=== PATIENT | male | born 1945 | race Caucasian/White ===

== ENCOUNTER 2022-03-19 06:18 | Day surgery (SDC) | payer OTHER, BC ==
--- NOTE | 2022-03-14 10:09 | RAD REPORT ---
EXAM DESCRIPTION: Carolyn Beasley And Zev (2 Views)03/14/2022 10:02 am CLINICAL HISTORY: Preop prostate surgery/hypertension COMPARISON: 2016 FINDINGS: The lungs appear clear of acute infiltrate. The heart is probably upper limits normal siz e IMPRESSION: No acute abnormalities displayed
[2022-03-14 10:11] LABS: Absolute Lymphocytes (CBC) 1.4 K/uL (0.7-4.9); Hematocrit 51.9 % (39.6-49.0); Lymphocytes % 25.3 % (15.3-44.8); MCV 82.6 fL (80-100); MPV 7.8 fL (7.6-11.3); RBC Red Blood Cell Count 6.28 M/uL (4.33-5.43)
[2022-03-14 10:19] LABS: Protime INR 1.33
[2022-03-14 10:25] LABS: SARS-CoV-2 Antigen Rapid Res Negative (Negative)
[2022-03-14 10:27] LABS: Specific Gravity > 1.030 (1.005-1.030); Urine Bilirubin NEGATIVE (Negative); Urine Blood Negative (Negative); Urine Clarity Clear (Clear); Urine Color Light-Yellow (Yellow); Urine Glucose 4+ (Over) (Negative); Urine Protein NEGATIVE (Negative); Urine Urobilinogen Normal (Normal)
[2022-03-14 10:39] LABS: Potassium 4.5 mmol/L (3.5-5.1)
--- NOTE | 2022-03-14 14:54 | EKG ---
Test Date: 2022-03-14 Test Time: 09:38:05 [employer] Dispenser: LALITA MEASUREMENT RESULTS: Intervals: Rate: 59 MO: 164 QRSD: 126 QT: 444 QTc: 439 [place]: P: 76 MO: 164 QRS: 100 T: -56 INTERPRETIVE STATEMENTS: Sinus bradycardia with occasional premature ventricular complexes Right bundle branch block T wave abnormality, consider inferolateral ischemia Abnormal ECG Compared to ECG 12/01/2015 13:55:33 Ventricular premature complex(es) now present Right bundle-branch block now present T-wave abnormality now present ST (T wave) deviation no longer present Prolonged QT interval no longer present Possible ischemia still present Electronically Signed On 03-14-22 14:53:29 CDT by Valentin Chau
[2022-03-19] MEDS ORDERED: CEFAZOLIN SODIUM 2 GM/VIAL ONE (06:43)
[2022-03-19] MEDS ORDERED: NA CHLORIDE 0.9% 1,000 ML ONE (06:43)
[2022-03-19] MEDS ORDERED: LIDOCAINE 1% MPF 5 ML VIAL ONE (07:33)
[2022-03-19] MEDS ORDERED: propofoL 200 MG/20 ML VIAL IV ONE (07:33)
[2022-03-19] MEDS ORDERED: FENTANYL CITR 100 MCG/2 ML ONE (07:33)
[2022-03-19] MEDS ORDERED: EPHEDRINE SULF 50 MG/ML VIAL ONE (07:44)
[2022-03-19] MEDS ORDERED: dexAMETHasone 10 MG/ML VIAL ONE (08:06)
[2022-03-19] MEDS ORDERED: ONDANSETRON 4 MG/2 ML VIAL ONE (08:06)
[2022-03-19 08:36] VITALS: O2SAT 94
[2022-03-19 08:54] VITALS: TEMP 97
[2022-03-19 09:14] VITALS: BP 125/76
--- NOTE | 2022-03-19 13:46 | OP ---
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 Principal Procedures: 1.Transrectal ultrasound guided fiducial markers placement, two. 2.Transrectal ultrasound-guided insertion of SpaceOAR gel. Indication For Procedure: Mr. Krishna is a 76-year-old gentleman with history of PE, on Eliquis, along with other medical comorbidities who underwent biopsy for an elevated PSA and a right apical prostate nodule revealing a 68.59 g gland and [place] 3 + 4 adenocarcinoma of the prostate involving the left apex laterally as well as the left mid gland and right mid gland. He was counseled on options inclu ding active surveillance, but also treatment options to include radiation therapy. Initially, he jay cted a version of active surveillance, but then he changed his mind and elected to proceed with proce dural therapy via radiation. He presents today for placement of fiducial markers to guide radiation as well as SpaceOAR gel. Procedure In Detail: The patient was consented in the preoperative holding area before being transfe rred to the operative suite where general anesthesia was induced. He was given Ancef 2 g IV antimicr obial prophylaxis and Pneumoboots were provided for DVT prophylaxis. He had stopped his Eliquis with the last dose taken Friday. His genitalia and scrotum were elevated out of the perineal region us ing Ioban drape applied to elevate the genitalia out of the perineal region. Once this was done, the perineal area was prepped with Betadine and the transrectal ultrasound probe was inserted freehand i nto his rectum under ultrasound guidance with ease. The prostate was visualized and placed into a se lf holding stepper device and was visualizable from the apex through to the bladder and seminal vesic les. The midzone of the prostate and the urethra was easily visualized. As a result, I began the pr ocedure using a fiducial marker inserted into his left apical region mid gland laterally. An additio nal fiducial marker was then placed into his right lateral mid gland base region. I then utilized th e SpaceOAR needle with a solution of saline in a syringe attached to it to navigate the needle carefu lly under ultrasound guidance over the rectal hump into a very narrow space of [place] between the base of the prostate and the rectum. Initially, the capsule of the prostate was entered using th e needle, but I was able to correct and get outside of the capsule of the prostate. I was able to hough ccessfully navigate the needle into the mid region of the prostate between the apex and the base with in the middle of the gland as visualized in 2 dimensions ultrasonographically. I then aspirated the needle to assess for any blood, and no blood was obtained. I then injected a puff of saline into the region and it did appropriately hydrodissect the space. As a result, I then utilized the SpaceOAR g el and injected the gel and created a nice space between the rectum and the base of the prostate. Th e needle was then removed under direct vision ensuring to avoid the anterior rectal hump, and the devan e was concluded. The Betadine was washed from his perineum and the Ioban drape was removed. He was taken out of the lithotomy position, and he was awakened from general anesthesia. He was then transf erred to a stretcher before being transferred to the recovery room in good condition. Complications: None. Discharge Disposition: He should initiate followup with Dr. Brown to begin radiation therapy in t he weeks. Subsequent followup may be established with me about 3 months after he completes th e radiation treatment or if he has bothersome urinary issues in the meantime. NORA/PUMA Voice ID: [id number] Report ID: [id number]
== END 2022-03-19 09:52 | disposition home or self-care (01) ==
LOC: OR 06:18
PROVIDERS: ATTEND Urology
PROC: 0VH43YZ Insertion of Other Device into Prostate and Seminal Vesicles, Percutaneous Approach (ICD-10-PCS; principal; 2022-03-19 07:30)
DX: C61 Malignant neoplasm of prostate (principal); I10 Essential (primary) hypertension; E03.9 Hypothyroidism, unspecified; E11.9 Type 2 diabetes mellitus without complications; Z86.711 Personal history of pulmonary embolism; Z79.01 Long term (current) use of anticoagulants; F17.210 Nicotine dependence, cigarettes, uncomplicated; Z20.822 Contact with and (suspected) exposure to COVID-19
CPT/HCPCS: 93005; 85025; 80048; 36415; 85610; 82947 ×2; 81003; 71046; 87811; 55874; J2704; J2001; J3010; J1100; J7030; J2405

== ENCOUNTER 2022-05-05 08:02 | Emergency (ER) | payer OTHER, BC ==
--- OUTSIDE RECORDS SUMMARY | 2022-05-05 08:07 | XMS REPORT | Continuity of Care Document ---
:1945 Author Organization [facility] t Address [address] [place] [address] Care Team Providers Name Role Phone [phone] Primary Care Physician Unavailable Jeb Bullock Attending Clinician Unavailable Irma Giordano Attending Clinician Unavailable SYSTEM, PROVIDER NOT IN Attending Clinician Unavailable Luke Fairbanks MD Attending Clinician CECI TEMPLE Attending Clinician Unavailable MUMTAZ ESPARZA Attending Clinician Unavailable LOLA REDD Attending Clinician Unavailable BRIAN CASTELLANOS Attending Clinician Unavailable CECI TEMPLE Admitting Clinician Unavailable Payers Payer Name Policy Type Policy Number Effective Date Expiration Date S ource Problems Condition Condition Condition Status Onset Resolution Last Treating Co mments Source Name Details Category Date Date Treatment Clinician Date Malignant Malignant Disease Active 2018-06 Met hodi 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 Malignant hepatic masses are less commonly calcified . The calcified hepatic mass seen on imaging is less likely malignanc y however we will request the CT scan from his outside hospital and review it during radiology conferenc e to determine plan of care. AFP normal. No exposure to HCV. Fatty Fatty Disease Active [facility] liver liver 12-31 Assessmen [facility] 00:00: t & Plan: Medical [address] [place] [address] g of this note might be different from the original. The patient is known to have fatty liver based on ultrasoun d. He has hyperlipi demia, diabetes, and obesity as risk factors for fatty liver disease. Though the liver biopsy is informati ve to assess associate d inflammat ion or fibrosis (GUTIERREZ/ cirrhosis ), at present there are no clinical or lab indicator s of advanced fibrosis. We counseled the patient on the importanc e of weight loss through a low carbohydr ate/low sugar diet and modest exercise. Type 2 Type 2 Disease Active [facility] mellitus [facility]: t & Plan: Med ical with with [address] [place] [address] kidney kidney g of this complicati complicati note on on might be different from the original. The patient has a GFR of 51 most likely due to diabetic nephropat hy. He will need a urinalysi s to test for microalbu minuria. This may explain his albumin level of 3.7. We will defer to Dr. Bullock for further testing. CKD stage CKD stage Disease Active [facility] 3 due to 3 due to 12-31 Assessmen Arleen es type 2 type 2 00:00: t & Plan: Medical diabetes diabetes [address] [place] [address] ter mellitus mellitus g of this note might be different from the original. GFR of 51. Metabolic Metabolic Disease Active [facility] syndrome syndrome 12-31 Assessmen Arleen es 00:00: t & Plan: Medical [address] [place] [address] g of this note might be different from the original. The patient meets criteria for metabolic syndrome with obesity, diabetes, hyperlipi demia and hypertens ion. This is a major risk factor for fatty liver disease. The importanc e of risk factor control was discussed with the patient. Weight loss with avoidance of carbohydr ates and sugar is recommend ed. Immunity Immunity Disease Active [facility] t status status 12-31 [facility] testing testing 00:00: Medical [address] [place] [address] [id number] Cancer of Problem Active Comm on prostate Spirit with - [facility] (stage T2b-c or Ruben 7 or PSA 10-20) [id number] BPH loc w Problem Active Com mon urin Spirit obs/LUTS - [facility] [id number] Prostate Problem Active Com mon [address]41 nodule [facility] Elevated Elevated Problem Active Commo n PSA PSA [facility] Allergies, Adverse Reactions, Alerts This patient has no known allergies or adverse reactions. Family History Family Member Diagnosis Comments Start Date Stop Date Source Natural father Alcohol abuse [facility] Natural father Liver disease [facility] Social History Social Habit Start Date Stop Date Quantity Comments Source History of Common Spirit - Tobacco Use [facility] History SDOH [facility] Alcohol Frequency [facility] Center History [facility] Alcohol Std Medical Cent[facility] r Drinks History [facility] Alcohol Binge [facility] Jenifer ter Alcohol intake 2021-08-03 2021-08-03 Current drinker of Ri thodist 00:00:00 00:00:00 alcohol (finding) Hospita l Alcohol Comment 2019-04-12 2019-04-12 occassionally Method ist 00:00:00 00:00:00 Hospital Tobacco use and 2016-01-01 2016-01-01 Never used [facility] exposure 00:00:00 00:00:00 [facility] Sex Assigned At [birth year] Christian 00:00:00 00:00:00 Hospital Smoking Status Start Date Stop Date Source Never Smoker [facility] Ex-smoker 2019-04-12 00:00:00 2019-04-12 00:00:00 [facility] Medications Ordered Filled Start Stop Current Ordering Indication Dosage Frequency Signature Comments Components Source Medication Medication Date Date Medication? Clinician (SIG) Name Name Cipro 500 Cipro 500 2021- No 1{table BID Cipro 500 MG MG 07-31 t} MG 00:00: 00:00 00 :00 Flomax 0.4 Flomax 0.4 2021- No 1{capsu QD Flomax 0.4 MG MG 07-11 le} MG 00:00: 00:00 00 :00 Flomax 0.4 Flomax 0.4 2022-0 2022- No 1{capsu QD Flomax 0.4 MG MG 07-11 le} MG 00:00: 00:00 00 :00 Flomax 0.4 Flomax 0.4 2021- No 1{capsu QD Flomax 0.4 MG MG 07-11 le} MG 00:00: 00:00 00 :00 Flomax 0.4 Flomax 0.4 2021- No 1{capsu QD Flomax 0.4 MG MG 07-11 le} MG 00:00: 00:00 00 :00 Flomax 0.4 Flomax 0.4 2021- No 1{capsu QD Flomax 0.4 MG MG 07-11 le} MG 00:00: 00:00 00 :00 Flomax 0.4 Flomax 0.4 2021- No 1{capsu QD Flomax 0.4 MG MG 07-11 le} MG 00:00: 00:00 00 :00 thyroid, 2019-06 Yes 180mg QD Take 180 Meth adebayo pork, 2-[address] (ARMOUR 10:21: mouth Hospita THYROID) 45 daily. l 180 mg tablet metFORMIN 2019-06 Yes 1000mg Q.5D Take 1,000 [facility] (GLUCOPHAGE 2-[address] ) 1,000 mg 10:21: mouth 2 Hosp carly tablet 45 (two) l times a day with meals. traMADol 2018-06 Yes [facility] (ULTRAM) 50 0-08 st mg tablet 00:00: Hospita 00 l zolpidem Yes [facility] (AMBIEN) 10 9-29 st mg tablet 00:00: Hospita 00 l losartan-hy Yes Method i drochloroth 02-24 st iazide 00:00: Hospita (HYZAAR) 00 l 50-12.5 mg per tablet ELIQUIS 5 Yes [facility] mg tablet 02-22 st 00:00: Hospita 00 l BYSTOLIC 5 Yes [facility] mg tablet 02-22 st 00:00: Hospita 00 l simvastatin Yes Method i (ZOCOR) 40 7-31 st MG tablet 00:00: Hospita 00 l Missing or Yes 5mg Q.5D Take [address] Non-Formula 7-27 by mouth 2 Coreen kes ry 10:09: (two) Medical Medication 32 times Center daily Eliquis . Missing or Yes 180mg Take [address] Non-Formula 7-27 mg by [facility] ry 10:09: mouth once Medical Medication 32 [place] [facility] Thyroid . apixaban 2015- Yes 1{tbl} Q.5D Take 1 [facility] t (ELIQUIS) 5 1-15 tablet by Arleen es mg Tab 00:00: mouth 2 Medical tablet 00 (two) Center times daily. metFORMIN Yes 500mg Q.5D Take [address] (GLUCOPHAGE 7-05 mg by [facility]ukes ) 500 MG 00:00: mouth 2 Medica l tablet 00 (two) Center times daily. BYSTOLIC 5 Yes 5mg QD Take [address] mg tablet 7-05 by mouth [facility] 00:00: daily. Medical 00 Center simvastatin Yes 40mg QD Take [address] (ZOCOR) 40 7-05 by mouth [facility]ukes MG tablet 00:00: daily. Medica l 00 Center losartan-hy Yes 12.5{tb Take 12.[address] drochloroth 7-02 l} tablets by Coreen marcus iazide 00:00: mouth. Medical (HYZAAR) 00 Center 50-12.5 mg per tablet zolpidem Yes 10mg Take [address] (AMBIEN) 10 5-19 by mouth. Arleen es mg tablet 00:00: Medical 00 Center Glimepiride Glimepiride No 1{table QD Glimepirid 1 MG 1 MG t_with_ e [address]_or_t he_firs t_main_ meal_of _the_da y} [facility] No 1{table QD [place] Thyroid 180 Thyroid 180 t_on_an Thyroid MG MG _empty_ 180 MG stomach } Zolpidem Zolpidem No 1{table QD Zolpidem Tartrate 10 Tartrate 10 t_at_be Tartrate MG MG dtime_a 10 MG s_neede d} Simvastatin Simvastatin No 1{table QD Simvastati 40 MG 40 MG t_in_th n 40 MG e_eveni ng} Losartan Losartan No 1{table QD Losartan Potassium-H Potassium-H t} Potassium- CTZ 50-12.5 CTZ 50-12.5 HCTZ MG MG 50-12.5 MG Bystolic 5 Bystolic 5 No 1{table QD Bystolic 5 MG MG t} MG Glimepiride Glimepiride No 1{table QD Glimepirid 1 MG 1 MG t_with_ e [address]_or_t he_firs t_main_ meal_of _theda y} Losartan Losartan No 1{table QD Losartan Potassium-H Potassium-H t} Potassium- CTZ 50-12.5 CTZ 50-12.5 HCTZ MG MG 50-12.5 MG [place] No 1{table QD [place] Thyroid 180 Thyroid 180 t_on_an Thyroid MG MG _empty_ 180 MG stomach } Eliquis 5 Eliquis 5 No Eliquis 5 MG MG MG Metformin Metformin No 1{table BID Metformin HCl 1000 MG HCl 1000 MG t_with_ HCl 1000 meals} MG Zolpidem Zolpidem No 1{table QD Zolpidem Tartrate 10 Tartrate 10 t_at_be Tartrate MG MG dtime_a 10 MG s_neede d} Bystolic 5 Bystolic 5 No 1{table QD Bystolic 5 MG MG t} MG Simvastatin Simvastatin No 1{table QD Simvastati 40 MG 40 MG t_in_ n 40 MG e_eveni ng} Glimepiride Glimepiride No 1{table QD Glimepirid 1 MG 1 MG t_with_ e [address]_or_t he_firs t_main_ meal_of _the y} Losartan Losartan No 1{table QD Losartan Potassium-H Potassium-H t} Potassium- CTZ 50-12.5 CTZ 50-12.5 HCTZ MG MG 50-12.5 MG [place] No 1{table QD [place] Thyroid 180 Thyroid 180 t_on_an Thyroid MG MG _empty_ 180 MG stomach } Eliquis 5 Eliquis 5 No Eliquis 5 MG MG MG Metformin Metformin No 1{table BID Metformin HCl 1000 MG HCl 1000 MG t_with_ HCl 1000 meals} MG Zolpidem Zolpidem No 1{table QD Zolpidem Tartrate 10 Tartrate 10 t_at_be Tartrate MG MG dtime_a 10 MG s_neede d} Bystolic 5 Bystolic 5 No 1{table QD Bystolic 5 MG MG t} MG Simvastatin Simvastatin No 1{table QD Simvastati 40 MG 40 MG t_in_th n 40 MG e_eveni ng} Simvastatin Simvastatin No 1{table QD Simvastati 40 MG 40 MG t_in_th n 40 MG e_eveni ng} [place] No 1{table QD [place] Thyroid 180 Thyroid 180 t_on_an Thyroid MG MG _empty_ 180 MG stomach } Bystolic 5 Bystolic 5 No 1{table QD Bystolic 5 MG MG t} MG Metformin Metformin No 1{table BID Metformin HCl 1000 MG HCl 1000 MG t_with_ HCl 1000 meals} MG Glimepiride Glimepiride No 1{table QD Glimepirid 1 MG 1 MG t_with_ e [address]_or_t he_firs t_main_ meal_of _the_da y} Losartan Losartan No 1{table QD Losartan Potassium-H Potassium-H t} Potassium- CTZ 50-12.5 CTZ 50-12.5 HCTZ MG MG 50-12.5 MG Eliquis 5 Eliquis 5 No Eliquis 5 MG MG MG Zolpidem Zolpidem No 1{table QD Zolpidem Tartrate 10 Tartrate 10 t_at_be Tartrate MG MG dtime_a 10 MG s_neede d} Losartan Losartan Yes Maia 1 tablet Co mmon Potassium-H Potassium-H Magali Spirit CTZ CTZ [facility] Simvastatin Simvastatin Yes Maia 1 tablet Common Magali in the Spirit evening [facility] Metformin Metformin Yes Maia 1 tablet Common HCl HCl [place] with meals Spiri t [facility] Bystolic Bystolic Yes Maia 1 tablet Co mmon Magali [facility] Zolpidem Zolpidem Yes Maia 1 tablet Co mmon Tartrate Tartrate [place] at bedtime Spirit as needed - [facility] Eliquis Eliquis Yes Maia as Common Magali directed [facility] [place]an [place] Yes Maia 1 tablet Common Thyroid Thyroid Magali on an Spir it empty - CHI stomach [facility] Glimepiride Glimepiride Yes Maia 1 tablet Common Magali with Spirit breakfast - [facility]I or the [facility] the day [place] Eliquis 5 Eliquis 5 No Eliquis 5 MG MG MG Losartan Losartan No 1{table QD Losartan Potassium-H Potassium-H t} Potassium- CTZ 50-12.5 CTZ 50-12.5 HCTZ MG MG 50-12.5 MG [place]lisa Cuellar No 1{table QD [place] Thyroid 180 Thyroid 180 t_on_an Thyroid MG MG _empty_ 180 MG stomach } Glimepiride Glimepiride No 1{table QD Glimepirid 1 MG 1 MG t_with_ e [address]_or_t he_firs t_main_ meal_of _the_ y} Simvastatin Simvastatin No 1{table QD Simvastati 40 MG 40 MG t_in_th n 40 MG e_eveni ng} Bystolic 5 Bystolic 5 No 1{table QD Bystolic 5 MG MG t} MG Zolpidem Zolpidem No 1{table QD Zolpidem Tartrate 10 Tartrate 10 t_at_be Tartrate MG MG dtime_a 10 MG s_neede d} Eliquis 5 Eliquis 5 No Eliquis 5 MG MG MG Glimepiride Glimepiride No 1{table QD Glimepirid 1 MG 1 MG t_with_ e [address]_or_t he_firs t_main_ meal_of _the_ y} [place] Cuellar No 1{table QD [place] Thyroid 180 Thyroid 180 t_on_an Thyroid MG MG _empty_ 180 MG stomach } Zolpidem Zolpidem No 1{table QD Zolpidem Tartrate 10 Tartrate 10 t_at_be Tartrate MG MG dtime_a 10 MG s_neede d} Metformin Metformin No 1{table BID Metformin HCl 1000 MG HCl 1000 MG t_with_ HCl 1000 meals} MG Simvastatin Simvastatin No 1{table QD Simvastati 40 MG 40 MG t_in_th n 40 MG e_eveni ng} Losartan Losartan No 1{table QD Losartan Potassium-H Potassium-H t} Potassium- CTZ 50-12.5 CTZ 50-12.5 HCTZ MG MG 50-12.5 MG Bystolic 5 Bystolic 5 No 1{table QD Bystolic 5 MG MG t} MG Eliquis 5 Eliquis 5 No Eliquis 5 MG MG MG Metformin Metformin No 1{table BID Metformin HCl 1000 MG HCl 1000 MG t_with_ HCl 1000 meals} MG Vital Signs Vital Name Observation Time Observation Value Comments Source height 2022-01-16 08:30:00 70 [in_i] [facility] weight 2022-01-16 08:30:00 227.2 [lb_av] [facility] temperature 2022-01-16 08:30:00 98.3 [degF] [facility] bmi 2022-01-16 08:30:00 32.6 kg/m2 [facility] oximetry 2022-01-16 08:30:00 97 % [facility] respiratory rate 2022-01-16 08:30:00 16 /min Comm on [facility] blood pressure 2022-01-16 08:30:00 125 mm[Hg] [facility] - systolic [facility] blood pressure 2022-01-16 08:30:00 85 mm[Hg] Common [facility] - diastolic [facility] respiratory rate 2021-12-17 14:00:00 16 /min Comm on [facility] blood pressure 2021-12-17 14:00:00 151 mm[Hg] Common [facility] - systolic [facility] blood pressure 2021-12-17 14:00:00 84 mm[Hg] Common [facility] - diastolic [facility] height 2021-12-17 14:00:00 70 [in_i] [facility] weight 2021-12-17 14:00:00 229.6 [lb_av] [facility] temperature 2021-12-17 14:00:00 97.7 [degF] [facility] bmi 2021-12-17 14:00:00 32.94 kg/m2 Common S [facility] oximetry 2021-12-17 14:00:00 98 % Common S pirit [facility] height 2021-09-20 12:30:00 70 [in_i] [facility] weight 2021-09-20 12:30:00 232 [lb_av] [facility] temperature 2021-09-20 12:30:00 98 [degF] Common S pirit [facility] bmi 2021-09-20 12:30:00 33.28 kg/m2 [facility] oximetry 2021-09-20 12:30:00 99 % [facility] respiratory rate 2021-09-20 12:30:00 16 /min Comm on [facility] blood pressure 2021-09-20 12:30:00 132 mm[Hg] Common [facility] - systolic [facility] blood pressure 2021-09-20 12:30:00 72 mm[Hg] Common [facility] - diastolic [facility] height 2021-07-11 10:45:00 70 [in_i] Common [facility] weight 2021-07-11 10:45:00 229.8 [lb_av] [facility] temperature 2021-07-11 10:45:00 98.6 [degF] Common S pirit [facility] bmi 2021-07-11 10:45:00 32.97 kg/m2 [facility] 2021-07-11 10:45:00 96 % Common S [facility] respiratory rate 2021-07-11 10:45:00 18 /min Comm on [facility] blood pressure 2021-07-11 10:45:00 131 mm[Hg] Common [facility] - systolic [facility] blood pressure 2021-07-11 10:45:00 85 mm[Hg] Common [facility] - diastolic [facility] Body height 2021-08-03 15:35:00 177.8 cm [facility] Body weight 2021-08-03 15:35:00 102.059 kg [facility] BMI 2021-08-03 15:35:00 32.28 kg/m2 [facility] Procedures Procedure Date / Time Performed Performing Clinician [facility] NM BONE SCAN WHOLE BODY 2021-08-14 20:04:00 Luke Fairbanks [facility] MRI LUMBAR SPINE W WO 2021-08-03 16:35:00 Luke Fairbanks [facility] CONTRAST MRI LUMBAR SPINE WO 2021-07-17 20:33:00 Luke Fairbanks [facility] CONTRAST Plan of Care Planned Activity Planned Date Details Comments Source Future Scheduled 2022-04-07 Hepatitis C screening [facility] Test 18:44:01 (procedure) [code = 331395663] Future Scheduled 2022-04-07 HEPATITIS B VACCINES Met [facility] Test 18:44:01 (2 of 3 - Hep B Twinrix risk 3-dose series) [code = HEPATITIS B VACCINES (2 of 3 - Hep B Twinrix risk 3-dose series)] Future Scheduled 2022-04-07 COVID-19 VACCINE (4 - [facility] Test 18:44:01 Booster for Moderna series) [code = COVID-19 VACCINE (4 - Booster for Moderna series)] Future Scheduled 2022-04-[address] [facility] Test 18:44:01 [code = INFLUENZA VACCINE] Future Scheduled 2022-04-07 65+ [facility] 18:44:01 VACCINE (2 - PCV) [code = 65+ PNEUMOCOCCAL VACCINE (2 - PCV)] Encounters Start End Encounter Admission Attending Care Care Encounter Source Date/Time Date/Time Type Type Clinicians Facility Department ID 2021-12-27 [facility] [id number] Common 12:26:00 Jeb [facility] 2021-09-19 [facility] [id number] Common 14:30:02 Jbe [facility] 2021-07-26 Out[facility] K[facility] [id number] Common 13:30:01 Jeb [facility] 2021-06-27 Outpatient Giordano, STLMLC STLMLC [id number] Common 11:08:04 Irma 23985 [facility] 2021-02-14 Outpatient SYSTEM, BOOM NUR [id number] 14:14:48 PROVIDER Lefty o n 2021-02-14 Outpatient SYSTEM, MDA BOOM [id number] 14:14:48 PROVIDER Lefty o n 2021-02-14 Outpatient SYSTEM, MDA BOOM [id number] 14:14:48 PROVIDER Lefty o n 2021-02-14 Outpatient SYSTEM, MDA BOOM [id number] 14:14:48 PROVIDER Lefty o n 2022-01-16 2022-01-16 OFFICE STLMLC STLMLC [id number] Co mmon 00:00:00 00:00:00 VISIT EST Spir it PT LEVEL 3 [facility] 2021-12-17 2021-12-17 (PROC) STLMLC STLMLC [id number] Co mmon 00:00:00 00:00:00 Procedure Spir it [facility] 2021-09-20 2021-09-20 OFFICE STLMLC STLMLC [id number] Co mmon 00:00:00 00:00:00 VISIT [facility] PT [facility] LEVEL 4 [facility] 2021-08-15 2021-08-15 ([place]) Nurse STLMLC STLMLC [id number] Common 00:00:00 00:00:00 Visit [facility] 2021-08-14 2021-08-[address]840[address]1 [id number] [facility] 14:15:00 23:59:00 Encounter Luke Garner [id number] 3.430.2.7 Hospit a .3.502837 l .8 2021-08-14 2021-08-14 [place] 87471.840.1 [id number] [facility] 09:43:07 14:14:00 Encounter Luke Garner [id number] 3.430.2.7 Hospit a .3.025151 l .8 2021-08-14 2021-08-14 [facility] [id number] [address] [place] 00:00:00 00:00:00 LUKE [address] 2021-08-14 2021-08-14 [facility] [id number] [address] [place] 00:00:00 00:00:[address] LUKE [address] 2021-08-14 2021-08-14 Travel 1.2.840.1 1.2.949.375 [id number] [facility] 00:00:00 00:00:[address] 3.430.2.7 0.2.7.3.698 Ho spita .3.212832 084.8 l .8 2021-08-06 2021-08-06 [facility] 1.2.840.1 [id number] [facility] 00:00:00 00:00:00 Orders Luke Ren. 70710.1.1 047 s t 3.430.2.7 Hospit a .3.570102 l .8 2021-08-03 2021-08-03 [facility], 1.2.840.1 [id number] Methodi 08:56:08 23:59:00 Encounter Luke L. 19838.1.[address] 3.430.2.7 Hospit a .3.055721 l .8 2021-08-03 2021-08-03 [facility] [id number] [address] [place] 00:00:00 00:00:00 LUKE [address] 2021-08-03 2021-08-03 Travel 1.2.840.1 1.2.925.894 [id number] [id number] [facility] 00:00:00 00:00:[address] 3.430.2.7 0.2.7.3.698 Ho spita .3.931831 084.8 l .8 2021-07-31 2021-07-31 (TEL) STLMLC STLMLC [id number] Co mmon 00:00:00 00:00:00 [facility] 2021-07-19 2021-07-19 Travel 1.2.840.1 1.2.521.371 [id number] [id number] Methodi 00:00:00 00:00:[address] 3.430.2.7 0.2.7.3.698 Ho spita .3.195586 084.8 l .8 2021-07-18 2021-07-18 [facility], 1.2.840.1 [id number] Methodi 00:00:00 00:00:00 Orders Luke L. 10699.1.1 521 s t 3.430.2.7 Hospit a .3.478308 l .8 2021-07-17 2021-07-17 [place] [address].2.840.1 [id number] Methodi 13:10:52 23:59:00 Encounter Luke L. 21559.1.[address] 3.430.2.7 Hospit a .3.554514 l .8 2021-07-17 2021-07-17 [facility] [id number] [address] [place] [address] 00:00:00 00:00:[address] LUKE [address] 2021-07-16 2021-07-16 Travel 1.2.840.1 1.2.882.489 [id number] Methodi 00:00:00 00:00:[address] 3.430.2.7 0.2.7.3.698 Ho spita .3.011027 084.8 l .8 2021-07-11 2021-07-11 [facility] [id number] Co mmon 00:00:00 00:00:00 VISIT Spirit ESTAB PT - [facility]I LEVEL 4 [facility] 2021-07-04 2021-07-04 [facility], 1.2.840.1 [id number] Methodi 00:00:00 00:00:00 Orders Luke L. 90186.1.1 203 s t 3.430.2.7 Hospit a .3.157571 l .8 2020-05-08 2020-05-08 Outpatient WINDY [facility] [id number] [address] [place] 00:00:00 00:00:00 CECI [address] 2019-07-23 2019-07-23 Outpatient Nj Maurot [id number] Common 13:46:00 13:46:00 t Specialty/U Sp christiano Specialty rology - [facility] /[facility] 2019-07-19 2019-07-19 Outpatient [place] [facility] [id number] Common 09:30:00 09:30:00 t Specialty/U Sp christiano Specialty rology - [facility]I /Urology Clinic [facility] 2019-06-21 2019-06-21 Outpatient ISAIAS [facility] [id number] [place] 00:00:00 00:00:[address] MUMTAZ [address] 2019-06-21 2019-06-21 Outpatient ISAIAS [facility] [id number] [place] 00:00:00 00:00:00 MUMTAZ [address] 2019-04-12 2019-04-12 Outpatient WINDY [facility] [id number] [place] 00:00:00 00:00:00 CECI [address] 2019-04-05 2019-04-05 Outpatient WINDY [facility] [id number] [address] [place] 00:00:00 00:00:00 CECI [address] 2019-04-02 2019-04-03 Outpatient IVANIA, [facility] [id number] [address] [place] 00:00:00 00:00:[address] 2019-03-18 2019-03-18 Outpatient IVANIA, [facility] [id number] 9413 [place] 00:00:00 00:00:[address] 2019-03-18 2019-03-18 Outpatient IVANIA, [facility] [id number] [address] [place] 00:00:00 00:00:[address] 2019-03-15 2019-03-16 Outpatient IVANIA, [facility] [id number] [place] 00:00:00 00:00:[address] Results Test Description Test Time Test Comments Results Result Comments Source BASIC METABOLIC PANEL 2016-09-02 10:47:00 Test Item Value Reference Range Interpretation Comme nts SODIUM (BEAKER) (test code 142 meq/L 136-145 = 381) POTASSIUM (BEAKER) (test 4.3 meq/L 3.5-5.1 code = 379) CHLORIDE (BEAKER) (test 107 meq/L 98-107 code = 382) CO2 (BEAKER) (test code = 25 meq/L 22-29 355) BLOOD UREA NITROGEN 16 mg/dL 7-21 (BEAKER) (test code = 354) CREATININE (BEAKER) (test 1.06 mg/dL 0.57-1.25 code = 358) GLUCOSE RANDOM (BEAKER) 128 mg/dL 70-105 H (test code = 652) CALCIUM (BEAKER) (test code 9.2 mg/dL 8.4-10.2 = 697) EGFR (BEAKER) (test code = 68 mL/min/1.73 sq m ESTIMATED GFR IS NOT 1092) ACCURATE CRE ATININE CLEARANCE IN CA EDICTING GLOMERULAR FILT RATION RATE. ESTIMATED GFR IS NOT APPLICABLE FOR DIALYSIS PATIENTS. HEPATIC FUNCTION [id number] 10:47:00 Test Item Value Reference Range Interpretation Comments TOTAL PROTEIN (BEAKER) (test code = 6.6 gm/dL 6.0-8.3 770) ALBUMIN (BEAKER) (test code = 1145) 4.2 g/dL 3.5-5.0 BILIRUBIN TOTAL (BEAKER) (test code 0.8 mg/dL 0.2-1.2 = 377) BILIRUBIN DIRECT (BEAKER) (test 0.3 mg/dL 0.1-0.5 code = 706) ALKALINE PHOSPHATASE (BEAKER) (test 58 U/L 40-150 code = 346) AST (SGOT) (BEAKER) (test code = 22 U/L 5-34 353) ALT (SGPT) (BEAKER) (test code = 20 U/L 6-55 347) CBC W/PLT COUNT & AUTO [id number] 10:44:00 Test Item Value Reference Range Interpretation Comments WHITE BLOOD CELL COUNT (BEAKER) 6.5 K/ L 4.0-10.0 (test code = 775) RED BLOOD CELL COUNT (BEAKER) 6.00 M/ L 4.20-5.80 H (test code = 761) HEMOGLOBIN (BEAKER) (test code = 16.0 GM/DL 13.0-16.8 410) HEMATOCRIT (BEAKER) (test code = 49.6 % 40.0-50.0 411) MEAN CORPUSCULAR VOLUME (BEAKER) 82.7 fL 82.0-98.0 (test code = 753) MEAN CORPUSCULAR HEMOGLOBIN 26.6 pg 27.0-33.0 L (BEAKER) (test code = 751) MEAN CORPUSCULAR HEMOGLOBIN CONC 32.2 GM/DL 32.0-36.0 (BEAKER) (test code = 752) RED CELL DISTRIBUTION WIDTH 13.1 % 10.3-14.2 (BEAKER) (test code = 412) PLATELET COUNT (BEAKER) (test 152 K/CU MM 150-430 code = 756) MEAN PLATELET VOLUME (BEAKER) 7.7 fL 6.5-10.5 (test code = 754) NUCLEATED RED BLOOD CELLS 0 /100 WBC 0-0 (BEAKER) (test code = 413) NEUTROPHILS RELATIVE PERCENT 66 % (BEAKER) (test code = 429) LYMPHOCYTES RELATIVE PERCENT 24 % (BEAKER) (test code = 430) MONOCYTES RELATIVE PERCENT 8 % (BEAKER) (test code = 431) EOSINOPHILS RELATIVE PERCENT 0 % (BEAKER) (test code = 432) BASOPHILS RELATIVE PERCENT 1 % (BEAKER) (test code = 437) NEUTROPHILS ABSOLUTE COUNT 4.28 K/ L 1.80-8.00 (BEAKER) (test code = 670) LYMPHOCYTES ABSOLUTE COUNT 1.58 K/ L 1.48-4.50 (BEAKER) (test code = 414) MONOCYTES ABSOLUTE COUNT (BEAKER) 0.54 K/ L 0.00-1.30 (test code = 415) EOSINOPHILS ABSOLUTE COUNT 0.01 K/ L 0.00-0.50 (BEAKER) (test code = 416) BASOPHILS ABSOLUTE COUNT (BEAKER) 0.07 K/ L 0.00-0.20 (test code = 417) 0.00PROTHROMBIN [id number] 10:28:00 Test Item Value Reference Range Interpretation Comments PROTIME (BEAKER) (test code = 14.8 seconds 11.7-14.7 H 759) INR (BEAKER) (test code = 370) 1.2 <=5.9 RECOMMENDED COUMADIN/WARFARIN INR THERAPY RANGESSTANDARD DOSE: 2.0 - 3.0 Includes: PROPHYLAXIS for venous thrombosis, systemic embolization; TREATMENT for venous thrombosis and/or pulmonary embolus.HIGH RISK: Target INR is 2.5-3.5 for patients with mechanical heart valves.
--- NOTE | 2022-05-05 08:28 | EDPHYS ---
Physician Documentation [facility] Name: Tyshawn Krishna Age: 77 yrs Sex: Male : 1945 Arrival Date: 05/05/2022 Time: 08:05 Bed IW1 Private MD: ED Physician Dhiraj Saba HPI: 05/05 08:24 This 77 yrs old Male presents to ER via Ambulatory with complaints of Insect Bite. [facility] 08:24 This is a 77-year-old male with history of diabetes mellitus that presents emergency [facility] department with complaints of right lower leg pain and swelling. Patient states he noticed what appeared to be an insect bite last night and attempted to squeeze pus out of it. Denies fever.. Historical: - Allergies: 08:21 No Known Allergies; iw - Home Meds: 08:21 Eliquis oral [Active]; Synjardy oral [Active]; iw - PMHx: 08:21 Diabetes mellitus; iw ROS: 08:24 Constitutional: Negative for fever, chills, and weight loss, Cardiovascular: Negative [facility] for chest pain, palpitations, and edema, Respiratory: Negative for shortness of breath, cough, wheezing, and pleuritic chest pain. 08:24 MS/extremity: Positive for pain. 08:24 All other systems are negative. Exam: 08:24 Constitutional: This is a well developed, well nourished patient who is awake, alert, jmm and in no acute distress. Head/Face: atraumatic. Eyes: EOMI, no conjunctival erythema appreciated ENT: Moist Mucus Membranes Neck: Trachea midline, Supple Chest/axilla: Normal chest wall appearance and motion. Cardiovascular: Regular rate and rhythm. No edema appreciated Respiratory: Normal respirations, no respiratory distress appreciated Abdomen/GI: Non distended Back: Normal ROM 08:24 Skin: Erythema and induration noted to the right lower extremity, tender to palpation. 08:24 Neuro: Orientation: is normal, Mentation: is normal, Memory: is normal. 08:24 Psych: Behavior/mood is pleasant, cooperative. Vital Signs: 08:20 BP 93 / 62; Pulse 85; Resp 16; Temp 97.9; Pulse Ox 91% on R/A; iw MDM: 08:26 Data reviewed: vital signs, nurses notes. Counseling: I had a detailed discussion with [facility] the patient and/or guardian regarding: the historical points, exam findings, and any diagnostic results supporting the discharge/admit diagnosis, the need for outpatient follow up, to return to the emergency department if symptoms worsen or persist or if there are any questions or concerns that arise at home. ED course: Patient is alert nontoxic in appearance in the ED. We will treat with oral antibiotics. Advised follow-up with PCP otherwise in strict return precautions. Patient discharged agrees to plan of care.. 08:27 Patient medically screened. [facility] Administered Medications: No medications were administered Disposition Summary: 05/05/22 08:27 Discharge Ordered Location: Home [facility] Condition: Stable [facility] Diagnosis - Insect bite (nonvenomous), right lower leg [facility] Followup: [facility] - With: Private Physician - When: 2 - 3 days - Reason: Recheck today's complaints, Continuance of care, Re-evaluation by your physician Discharge Instructions: - Discharge Summary Sheet [facility] - Cellulitis, Adult [facility] Forms: - Medication Reconciliation Form [facility] - Thank You Letter [facility] - Antibiotic Education [facility] - Prescription Opioid Use [facility] Prescriptions: - mupirocin 2 % Topical ointment - apply 1 application by TOPICAL route 3 times per day; 1 tube; Refills: 0, [facility] Product Selection Permitted - Doxycycline Hyclate 100 mg Oral Tablet - take 1 tablet by ORAL route every 12 hours; 20 tablet; Refills: 0, Product [facility] Selection Permitted Signatures: Aris Lynn PA PA jmm Williams, Irene, RN RN iw
--- NOTE | 2022-05-05 08:28 | ER ---
Nurse's Notes [facility] Name: Tyshawn Krishna Age: 77 yrs Sex: Male : 1945 Arrival Date: 05/05/2022 Time: 08:05 Bed IW1 Private MD: Diagnosis: Insect bite (nonvenomous), right lower leg Presentation: 05/05 08:20 Chief complaint: Patient states: insect bit to right calf , noticed it last night. iw Coronavirus screen: At this time, the client does not indicate any symptoms associated with coronavirus-19. Ebola Screen: Patient negative for fever greater than or equal to 101.5 degrees Fahrenheit, and additional compatible Ebola Virus Disease symptoms Patient denies exposure to infectious person. Patient denies travel to an Ebola-affected area in the 21 days before illness onset. No symptoms or risks identified at this time. Initial Sepsis Screen: Does the patient meet any 2 criteria? No. Patient's initial sepsis screen is negative. Does the patient have a suspected source of infection? No. Patient's initial sepsis screen is negative. Risk Assessment: Do you want to hurt yourself or someone else? Patient reports no desire to harm self or others. Onset of symptoms was May 04, 2022. 08:20 Method Of Arrival: Ambulatory 08:20 Acuity: TIMMY 4 iw Historical: - Allergies: 08:21 No Known Allergies; iw - Home Meds: 08:21 Eliquis oral [Active]; Synjardy oral [Active]; iw - PMHx: 08:21 Diabetes mellitus; iw Vital Signs: 08:20 BP 93 / 62; Pulse 85; Resp 16; Temp 97.9; Pulse Ox 91% on R/A; iw ED Course: 08:05 Patient arrived in ED. rg4 08:08 [facility] 08:08 Dhiraj Saba MD is Attending Physician. [facility] 08:21 Triage completed. iw 08:23 Arm band placed on. iw 08:26 Victoria Gutierrez, RN is Primary Nurse. iw Administered Medications: No medications were administered Outcome: 08:27 Discharge ordered by . luis 08:32 Patient left the ED. Signatures: Aris Lynn PA PA jmm Williams, Irene, VERONICA Kaelyn Berman rg4 Corrections: (The following items were deleted from the chart) 08:23 08:20 Pulse 85bpm; Resp 16bpm; Temp 97.9F; iw iw 08:25 08:20 Pulse 85bpm; Resp 16bpm; Pulse Ox 91% RA; Temp 97.9F; iw iw
[2022-05-05 08:57] VITALS: BP 93/62; TEMP 97.9; O2SAT 91
== END 2022-05-05 08:32 | disposition home or self-care (01) ==
LOC: ER 08:02
DX: S80.861A Insect bite (nonvenomous), right lower leg, initial encounter (principal); E11.9 Type 2 diabetes mellitus without complications
CPT/HCPCS: 99281

== ENCOUNTER 2022-05-10 11:46 | Observation (INO) | payer OTHER, BC ==
[2022-05-10 12:37] LABS: SARS-CoV-2 Antigen Rapid Res Negative (Negative)
--- OUTSIDE RECORDS SUMMARY | 2022-05-10 14:01 | XMS REPORT | Continuity of Care Document ---
:1945 Author Organization [facility] t Address [address]. [address] [place] [address] Care Team Providers Name Role Phone [phone] Primary Care Physician Unavailable Jeb Bullock Attending [...] Active Last C HI St 12-31 Assessmen Dean 00:00: t & Plan: Medical [address] [place] [address] Center g of this note might be different from the original. Malignant hepatic masses are less commonly calcified . The calcified hepatic mass seen on imaging is less likely malignanc y however we will request the CT scan from his outside hospital and review it during radiology conferenc e to determine plan of care. AFP normal. No exposure to HCV. Fatty Fatty Disease Active [facility] liver liver 12-31 Assess[facility] 00:00: t & Plan: Medical [address] [place] [address] g of this note might be different [...] exercise. Type 2 Type 2 Disease Active [facility] diabetes diabetes 12-[facility] Arleen es mellitus mellitus 00:00: t & Plan: Med ical with with [address] [place] [address] kidney kidney g of this complicati complicati [...] testing. CKD stage CKD stage Disease Active [facility] 3 due to 3 due to 12-31 Assessmen Arleen es type 2 type 2 00:00: t & Plan: Medical diabetes diabetes [address] [place] [address] ter mellitus mellitus g of this note might be different from the original. GFR of 51. Metabolic Metabolic Disease Active [facility] syndrome syndrome 12-31 Assessmen Arleen es 00:00: t & Plan: Medical [address] [place] [address] g of this note might be different from the original. The patient meets criteria for metabolic syndrome with obesity, diabetes, hyperlipi demia and hypertens ion. This is a major risk factor for fatty liver disease. The importanc e of risk factor control was discussed with the patient. Weight loss with avoidance of carbohydr ates and sugar is recommend ed. Immunity Immunity Disease Active [facility] S t status status 12-31 [facility] testing testing 00:00: [address] [id number] Cancer of Problem Active Comm on prostate Spirit with - [facility] Med[facility] l risk Center (stage T2b-c or Ruben 7 or PSA 10-20) [id number] BPH loc w Problem Active Com mon urin Spirit obs/LUTS - [facility] [id number] Prostate Problem Active Com mon nodule [facility] Elevated Elevated Problem Active Commo n PSA PSA [facility] Allergies, Adverse Reactions, Alerts This patient has no known allergies or adverse reactions. Family History Family Member Diagnosis Comments Start Date Stop Date Source Natural father Alcohol abuse [facility] Natural father Liver disease [facility] Social History Social Habit Start Date Stop Date Quantity Comments Source History of Common Spirit - Tobacco Use [facility] History SDOH [facility] Alcohol Frequency Medical Center History SDOH [facility] Alcohol Std Medical Cente r Drinks History [facility] Alcohol Binge Medical Jeniefr ter Alcohol intake 2021-08-03 2021-08-03 [facility] 00:[facility]00 alcohol (finding) Hospita l Alcohol Comment 2019-04-12 2019-04-12 occassionally Method ist 00:00:00 00:00:00 Hospital Tobacco use and 2016-01-01 2016-01-01 Never used [facility] exposure 00:00:00 00:00:00 [facility] Sex Ass[birth year] At [birth year] Bapt[facility] 00:00:00 00:00:00 Hospital Smoking Status Start Date Stop Date Source Never Smoker [facility] Ex-smoker 2019-04-12 00:00:00 2019-04-12 00:00:00 [facility] Medications Ordered Filled Start Stop Current [...] ) 1,000 mg 10:21: mouth 2 Hosp caryl tablet 45 (two) l times a day with meals. thyroid, 2019-06 Yes 180mg QD Take 180 [...] st mg tablet 00:00: Hospita 00 l traMADol 2018-06 Yes [facility] (ULTRAM) 50 0-08 st mg tablet 00:00: Hospita 00 l zolpidem Yes [facility] (AMBIEN) 10 9-29 st mg tablet 00:00: Hospita 00 l zolpidem 2019-0 Yes [facility] (AMBIEN) 10 9-29 st mg tablet 00:00: Hospita 00 l losartan-hy 2018-0 Yes Method i drochloroth 02-24 st iazide 00:00: Hospita (HYZAAR) 00 l 50-12.5 mg per tablet losartan-hy 2018-0 Yes Method i drochloroth 02-24 st iazide 00:00: Hospita (HYZAAR) 00 l 50-12.5 mg per tablet ELIQUIS 5 2018- Yes Methodi mg tablet 02-22 st 00:00: Hospita 00 l BYSTOLIC 5 2018-0 Yes [facility]i mg tablet 02-22 st 00:00: Hospita 00 l ELIQUIS 5 Yes [facility] mg tablet 02-22 st 00:00: Hospita 00 l BYSTOLIC 5 2018-0 Yes Methodi mg tablet 02-22 st 00:00: Hospita 00 l simvastatin 2018- Yes Method i (ZOCOR) 40 7-31 st MG tablet 00:00: Hospita 00 l simvastatin 0 Yes Method i (ZOCOR) 40 7-31 st MG tablet 00:00: Hospita 00 l Missing or 2016- Yes 5mg Q.5D Take [address] Non-Formula 7-27 by mouth 2 Coreen kes ry 10:09: (two) Medical Medication 32 times Center daily Eliquis . Missing or 2016- Yes 180mg Take [address] Non-Formula 7-27 mg by Lukes ry 10:09: mouth once Medical Medication [address] [place] [address] Thyroid . Missing or 2016- Yes 5mg Q.5D Take [address] Non-Formula 7-27 by mouth 2 Coreen kes ry 10:09: (two) Medical Medication 32 times Center daily Eliquis . Missing or 2017-0 Yes 180mg Take [address] Non-Formula 7-27 mg by Lukes ry 10:09: mouth once Medical Medication [address] [place] [address] Thyroid . apixaban 2015-06 Yes 1{tbl} Q.5D Take 1 [facility] t (ELIQUIS) 5 1-15 tablet by Arleen es mg Tab 00:00: mouth 2 Medical tablet 00 (two) Center times daily. apixaban 2015-06 Yes 1{tbl} Q.5D Take 1 [facility] S [...] 7-05 by mouth Lukes 00:00: daily. Medical [address] [place] [address] simvastatin Yes 40mg QD Take [address] (ZOCOR) 40 7-05 by mouth Lukes MG tablet 00:00: daily. Medica l 00 Center metFORMIN Yes 500mg Q.5D Take [address] (GLUCOPHAGE 7-05 mg by Lukes ) 500 MG 00:00: mouth 2 Medica l tablet 00 (two) Center times daily. BYSTOLIC 5 Yes 5mg QD Take [address] mg tablet 7-05 by mouth Lukes 00:00: daily. Medical [address] [place] [address] simvastatin Yes 40mg QD Take [address] (ZOCOR) 40 7-05 by mouth Lukes MG tablet 00:00: daily. Medica l 00 Center losartan-hy Yes 12.5{tb Take 12.[address] drochloroth 7-02 l} tablets by Coreen kes iazide 00:00: mouth. [facility] (HYZAAR) Center 50-12.5 mg per tablet losartan-hy Yes 12.5{tb Take 12.[address] drochloroth 7-02 l} tablets by Coreen kes iazide 00:00: mouth. Medical (HYZAAR) 00 Center 50-12.5 mg per tablet zolpidem Yes 10mg Take [address] (AMBIEN) 10 5-19 by mouth. Arleen es mg tablet 00:00: Medical [address] [place] [address] zolpidem 0 Yes 10mg Take [address] (AMBIEN) 10 5-19 by mouth. Arleen es mg tablet 00:00: Medical [address] [place] [address] Zolpidem Zolpidem No 1{table QD Zolpidem Tartrate [...] CTZ 50-12.5 HCTZ MG MG 50-12.5 MG [place] No 1{table QD [place] Thyroid 180 Thyroid 180 t_on_an Thyroid MG [...] MG t_in_th n 40 MG e_eveni ng} Glimepiride Glimepiride No 1{table QD Glimepirid 1 MG 1 MG t_with_ e [address]_or_t he_firs t_main_ meal_of _theda y} Losartan Losartan No 1{table QD Losartan Potassium-H Potassium-H t} Potassium- CTZ 50-12.5 CTZ 50-12.5 HCTZ MG MG 50-12.5 MG [place] No 1{table QD [place] Thyroid 180 Thyroid 180 t_on_an Thyroid MG [...] MG t_in_th n 40 MG e_eveni ng} [place] No 1{table QD [place] Thyroid 180 Thyroid 180 t_on_an Thyroid MG [...] Maia 1 tablet Co mmon Potassium-H Potassium-H [place] [facility] CTZ CTZ - [facility] Simvastatin Simvastatin Yes Maia 1 tablet Common [place] in the Spirit evening [facility] Metformin Metformin Yes Maia 1 tablet Common HCl HCl Magali with meals Spiri t - [facility] Bystolic Bystolic Yes Maia 1 tablet Co mmon [place] Spirit [facility] Zolpidem Zolpidem Yes Maia 1 tablet Co mmon Tartrate Tartrate Magali at bedtime Spirit as needed - [facility] Eliquis Eliquis Yes Maia as Common Magali directed Spirit - [facility] [place]aredo [place]ared[place] Yes Maia 1 tablet Common Thyroid Thyroid [place] on an Spir it empty - CHI stomach [facility] Glimepiride Glimepiride Yes Maia 1 tablet Common [place] with Spirit breakfast - [facility]I or the [facility] meal of [facility] the day Jay Eliquis 5 Eliquis 5 No Eliquis 5 MG MG MG Losartan Losartan No 1{table QD Losartan Potassium-H Potassium-H t} Potassium- CTZ 50-12.5 CTZ 50-12.5 HCTZ MG MG 50-12.5 MG [place] No 1{table QD [place] Thyroid 180 Thyroid 180 t_on_an Thyroid MG MG _empty_ 180 MG stomach } Glimepiride Glimepiride No 1{table QD Glimepirid 1 MG 1 MG t_with_ e [address]_or_t he_firs t_main_ meal_of _the_da y} Simvastatin Simvastatin No 1{table QD Simvastati [...] breakfa st_or_t he_firs t_main_ meal_of _the_da y} [place] No 1{table QD [place] Thyroid 180 Thyroid 180 t_on_an Thyroid MG [...] breakfa st_or_t he_firs t_main_ meal_of _the_da y} [place] No 1{table QD [place] Thyroid 180 Thyroid 180 t_on_an Thyroid MG MG _empty_ 180 MG stomach } Vital Signs Vital Name Observation Time Observation Value Comments Source height 2022-01-16 08:30:00 70 [in_i] [facility] weight 2022-01-16 08:30:00 227.2 [lb_av] [facility] temperature 2022-01-16 08:30:00 98.3 [degF] [facility] bmi 2022-01-16 08:30:00 32.6 kg/m2 [facility] oximetry 2022-01-16 08:30:00 97 % [facility] respiratory rate 2022-01-16 08:30:00 16 /min Comm on [facility] blood pressure 2022-01-16 08:30:00 125 mm[Hg] Common [facility] - systolic [facility] blood pressure 2022-01-16 08:30:00 85 mm[Hg] Common [facility] - diastolic [facility] respiratory rate 2021-12-17 14:00:00 16 /min Comm on [facility] blood pressure 2021-12-17 14:00:00 151 mm[Hg] Common [facility] - systolic [facility] blood pressure 2021-12-17 14:00:00 84 mm[Hg] Common Spirit - diastolic [facility] height 2021-12-17 14:00:00 70 [in_i] Common S pirit - [facility] weight 2021-12-17 14:00:00 229.6 [lb_av] Common [facility] temperature 2021-12-17 14:00:00 97.7 [degF] Common S pirit - [facility] bmi 2021-12-17 14:00:00 32.94 kg/m2 Common S pirit [facility] oximetry 2021-12-17 14:00:00 98 % [facility] height 2021-09-20 12:30:00 70 [in_i] [facility] weight 2021-09-20 12:30:00 232 [lb_av] [facility] temperature 2021-09-20 12:30:00 98 [degF] [facility] bmi 2021-09-20 12:30:00 33.28 kg/m2 [facility] 2021-09-20 12:30:00 99 % [facility] respiratory rate 2021-09-20 12:30:00 16 /min Comm on [facility] blood pressure 2021-09-20 12:30:00 132 mm[Hg] Common [facility] - systolic [facility] blood pressure 2021-09-20 12:30:00 72 mm[Hg] Common Spirit - diastolic [facility] height 2021-07-11 10:45:00 70 [in_i] Common S [facility] weight 2021-07-11 10:45:00 229.8 [lb_av] [facility] temperature 2021-07-11 10:45:00 98.6 [degF] Common S pirit [facility] bmi 2021-07-11 10:45:00 32.97 kg/m2 [facility] oximetry 2021-07-11 10:45:00 96 % Common S pirit [facility] respiratory rate 2021-07-11 10:45:00 18 /min Comm on Spirit - [facility] blood pressure 2021-07-11 10:45:00 131 mm[Hg] Common Spirit - systolic [facility] blood pressure 2021-07-11 10:45:00 85 mm[Hg] Common Spirit - diastolic [facility] Body height 2021-08-03 15:35:[address] [facility] Body weight 2021-08-03 15:35:[address] [facility] BMI 2021-08-03 15:35:00 32.28 kg/m2 [facility] Procedures Procedure Date / Time Performed Performing Clinician [facility] e NM BONE SCAN WHOLE BODY 2021-08-14 20:04:00 Luke Fairbanks [facility] MRI LUMBAR SPINE W WO 2021-08-03 16:35:00 Luke Fairbanks [facility] CONTRAST MRI LUMBAR SPINE WO 2021-07-17 20:33:00 FairbanksLuke harris [facility] CONTRAST Plan of Care Planned Activity Planned Date Details Comments Source Future Scheduled 2022-04-07 Hepatitis C screening [facility] Test 18:44:01 (procedure) [code = 912805104] Future Scheduled 2022-04-07 HEPATITIS B VACCINES Met [facility] Test 18:44:01 (2 of 3 - Hep B Twinrix risk 3-dose series) [code = HEPATITIS B VACCINES (2 of 3 - Hep B Twinrix risk 3-dose series)] Future Scheduled 2022-04-07 COVID-19 VACCINE (4 - [facility] Test 18:44:01 Booster for Moderna series) [code = COVID-19 VACCINE (4 - Booster for Moderna series)] Future Scheduled 2022-04-07 INFLUENZA VACCINE Method [facility] Test 18:44:01 [code = INFLUENZA VACCINE] Future Scheduled 2022-04-07 65+ [facility] 18:44:01 VACCINE (2 - PCV) [code = 65+ PNEUMOCOCCAL VACCINE (2 - PCV)] Future Scheduled 2022-04-07 Hepatitis C screening [facility] Test 18:44:01 (procedure) [code = 934584603] Future Scheduled 2022-04-07 HEPATITIS B VACCINES Met [facility] Test 18:44:01 (2 of 3 - Hep B Twinrix risk 3-dose series) [code = HEPATITIS B VACCINES (2 of 3 - Hep B Twinrix risk 3-dose series)] Future Scheduled 2022-04-07 COVID-19 VACCINE (4 - [facility] Test 18:44:01 Booster for Moderna series) [code = COVID-19 VACCINE (4 - Booster for Moderna series)] Future Scheduled 2022-04-07 INFLUENZA VACCINE Method [facility] Test 18:44:01 [code = INFLUENZA VACCINE] Future Scheduled 2022-04-07 65+ PNEUMOCOCCAL Methodi [facility] Test 18:44:01 VACCINE (2 - PCV) [code = 65+ PNEUMOCOCCAL VACCINE (2 - PCV)] Encounters Start End Encounter Admission Attending Care Care Encounter Source Date/Time Date/Time Type Type Clinicians Facility Department ID 2021-12-27 Outpatient Kobe, STLMLC STLC [id number] Common 12:26:00 Jeb [facility] 2021-09-19 Outpatient Kobe, STLMLC STLC [id number] Common 14:30:02 [facility] 2021-07-26 Outpatient Kobe, STLMLC STLC [id number] Common 13:30:01 [facility] 2021-06-27 Outpatient Giordano, STLMLC STLC [id number] Common 11:08:04 Irma [address] [facility] 2021-02-14 Outpatient SYSTEM, BOOM NUR [id number] 14:14:48 PROVIDER Lefty o n 2021-02-14 Outpatient SYSTEM, BOOM NUR [id number] 14:14:48 PROVIDER Lefty o n 2021-02-14 Outpatient SYSTEM, BOOM NUR [id number] MD 14:14:48 PROVIDER Lefty o n 2021-02-14 Outpatient SYSTEM, BOOM NUR [id number] MD 14:14:48 PROVIDER Lefty o n 2022-01-16 2022-01-16 OFFICE STLMLC STLMLC [id number] Co mmon 00:00:00 00:00:00 VISIT EST Spir it PT LEVEL 3 - [facility] 2021-12-17 2021-12-17 (PROC) STLMLC STLMLC [id number] Co mmon 00:00:00 00:00:00 Procedure Spir it - [facility] 2021-09-20 2021-09-20 OFFICE STLMLC STLMLC [id number] Co mmon 00:00:00 00:00:00 VISIT Spirit ESTAB PT - CHI LEVEL 4 [facility] 2021-08-15 2021-08-15 (NV) Nurse STLMLC STLMLC [id number] Common 00:00:00 00:00:00 Visit Spirit - [facility] 2021-08-14 2021-08-14 [facility], 1.2.840.1 [id number] Methodi 14:15:00 23:59:00 Encounter Luke Garner 47625.1.[address] 3.430.2.7 Hospit a .3.656667 l .8 2021-08-14 2021-08-14 [facility], 1.2.840.1 [id number] Methodi 14:15:00 23:59:00 Encounter Luke L. 20685.1.[address] 3.430.2.7 Hospit a .3.669978 l .8 2021-08-14 2021-08-14 [facility], 1.2.840.1 Methodi 09:43:07 14:14:00 Encounter Luke L. 09082.1.[address] 3.430.2.7 Hospit a .3.142840 l .8 2021-08-14 2021-08-14 [facility], 1.2.840.1 Methodi 09:43:07 14:14:00 Encounter Luke L. 21535.1.[address] 3.430.2.7 Hospit a .3.619576 l .8 2021-08-14 2021-08-14 Travel 1.2.840.1 1.2.882.368 [id number] Methodi 00:00:00 00:00:[address] 3.430.2.7 0.2.7.3.698 Ho spita .3.484949 084.8 l .8 2021-08-14 2021-08-14 Travel 1.2.840.1 1.2.111.811 [id number] Methodi 00:00:00 00:00:[address] 3.430.2.7 0.2.7.3.698 Ho spita .3.863976 084.8 l .8 2021-08-06 2021-08-06 [facility], 1.2.840.1 [id number] Methodi 00:00:00 00:00:00 Orders Luke L. 06210.1.1 047 s t 3.430.2.7 Hospit a .3.681966 l .8 2021-08-06 2021-08-06 [facility], 1.2.840.1 [id number] Methodi 00:00:00 00:00:00 Orders Luke L. 37095.1.1 047 s t 3.430.2.7 Hospit a .3.654921 l .8 2021-08-03 2021-08-03 [facility], 1.2.840.1 [id number] Methodi 08:56:08 23:59:00 Encounter Luke L. 91864.1.[address] 3.430.2.7 Hospit a .3.417517 l .8 2021-08-03 2021-08-03 [facility], 1.2.840.1 [id number] Methodi 08:56:08 23:59:00 Encounter Luke L. 19049.1.[address] 3.430.2.7 Hospit a .3.027174 l .8 2021-08-03 2021-08-03 Travel 1.2.840.1 1.2.848.298 [id number] [id number] Methodi 00:00:00 00:00:[address] 3.430.2.7 0.2.7.3.698 Ho spita .3.260165 084.8 l .8 2021-08-03 2021-08-03 Travel 1.2.840.1 1.2.872.017 5628 [id number] Methodi 00:00:00 00:00:[address] 3.430.2.7 0.2.7.3.698 Ho spita .3.276182 084.8 l .8 2021-07-31 2021-07-31 [facility] [id number] Co mmon 00:00:00 00:00:00 [facility] 2021-07-19 2021-07-19 Travel 1.2.840.1 1.2.896.392 4649 [id number] Methodi 00:00:00 00:00:[address] 3.430.2.7 0.2.7.3.698 Ho spita .3.175270 084.8 l .8 2021-07-19 2021-07-19 Travel 1.2.840.1 1.2.059.136 7403 [id number] Methodi 00:00:00 00:00:[address] 3.430.2.7 0.2.7.3.698 Ho spita .3.466467 084.8 l .8 2021-07-18 2021-07-18 [facility] 1.[facility].840[facility]1 [id number] [id number] Methodi 00:00:00 00:00:00 Orders Luke L. 88571.1.1 521 s t 3.430.2.7 Hospit a .3.080694 l .8 2021-07-18 2021-07-18 [facility] 1.2.840.1 [id number] [id number] Methodi 00:00:00 00:00:00 Orders Luke L. 02321.1.1 521 s t 3.430.2.7 Hospit a .3.362864 l .8 2021-07-17 2021-07-17 [facility], 1.2.840.1 [id number] Methodi 13:10:52 23:59:00 Encounter Luke L. 15653.1.[address] 3.430.2.7 Hospit a .3.037039 l .8 2021-07-17 2021-07-17 [facility], 1.2.840.1 [id number] Methodi 13:10:52 23:59:00 Encounter Luke L. 75332.1.[address] 3.430.2.7 Hospit a .3.106180 l .8 2021-07-16 2021-07-16 Travel 1.2.840.1 1.2.988.163 6802 [id number] Methodi 00:00:00 00:00:[address] 3.430.2.7 0.2.7.3.698 Ho spita .3.091603 084.8 l .8 2021-07-16 2021-07-16 Travel 1.2.840.1 1.2.602.041 5464 [id number] Methodi 00:00:00 00:00:[address] 3.430.2.7 0.2.7.3.698 Ho spita .3.700591 084.8 l .8 2021-07-11 2021-07-[address] [facility] [id number] Co mmon 00:00:00 00:00:00 VISIT Spirit ESTAB PT - CHI LEVEL 4 [facility] 2021-07-04 2021-07-04 [facility], 1.2.840.1 2099 [id number] Methodi 00:00:00 00:00:00 Orders Luke Ren. 77901.1.1 203 s t 3.430.2.7 Hospit a .3.577725 l .8 2021-07-04 2021-07-04 [facility], 1.2.840.1 [id number] 2100 [id number] Methodi 00:00:00 00:00:00 Chauncey Garner 93269.1.1 203 s t 3.430.2.7 Hospit a .3.433806 l .8 2020-05-08 2020-05-08 Outpatient HARRISER, [facility] 021 [id number] [place] 00:00:00 00:00:00 CECI 365 Method i 2019-07-23 2019-07-23 Outpatient [facility] [id number] Common 13:46:00 13:46:00 t Specialty/U Sp christiano Specialty rology - [facility]I /Urology Clinic [facility] 2019-07-19 2019-07-19 Outpatient [facility] [id number] Common 09:30:00 09:30:00 t Specialty/U Sp christiano Specialty rology - CHI /Urology Clinic [facility] 2019-06-21 2019-06-21 Outpatient LORENZOER, [facility] [id number] [place] 00:00:00 00:00:00 MUMTAZ 082 Method i 2019-06-21 2019-06-21 Outpatient LORENZOER, [facility] [id number] [place] 00:00:00 00:00:00 MUMTAZ 900 Method i 2019-04-12 2019-04-12 Outpatient WINDY, [facility] [id number] [id number] [place] 00:00:00 00:00:00 CECI 486 Method i 2019-04-05 2019-04-05 Outpatient HARRISER, [facility] 021 [id number] [place] 00:00:00 00:00:00 CECI [address] 2019-04-02 2019-04-03 Outpatient IVANIA, [facility] [id number] [place] 00:00:00 00:00:00 808 Method i 2019-03-18 2019-03-18 Outpatient IVANIA, [facility] [id number] [place] 00:00:00 00:00:[address] 2019-03-18 2019-03-18 Outpatient IVANIA, [facility] [id number] [place] 00:00:00 00:00:[address] 2019-03-15 2019-03-16 [facility] [id number] [place] 00:00:00 00:00:[address] Results Test Description Test Time Test Comments Results Result Comments Source HEPATIC FUNCTION PANEL 2016-09-02 10:47:00 Test Item Value Reference Range Interpretation Comme nts TOTAL PROTEIN (BEAKER) (test code = 770) 6.6 gm/dL 6.0-8.3 ALBUMIN (BEAKER) (test code = 1145) 4.2 g/dL 3.5-5.0 BILIRUBIN TOTAL (BEAKER) (test code = 377) 0.8 mg/dL 0.2-1.2 BILIRUBIN DIRECT (BEAKER) (test code = 706) 0.3 mg/dL 0.1-0.5 ALKALINE PHOSPHATASE (BEAKER) (test code = 346) 58 U/L 40-150 AST (SGOT) (BEAKER) (test code = 353) 22 U/L 5-34 ALT (SGPT) (BEAKER) (test code = 347) 20 U/L 6-55 BASIC METABOLIC [id number] 10:47:00 Test Item Value Reference Range Interpretation Comments SODIUM (BEAKER) 142 meq/L 136-145 (test code = 381) POTASSIUM (BEAKER) 4.3 meq/L 3.5-5.1 (test code = 379) CHLORIDE (BEAKER) 107 meq/L 98-107 (test code = 382) CO2 (BEAKER) (test 25 meq/L 22-29 code = 355) BLOOD UREA NITROGEN 16 mg/dL 7-21 (BEAKER) (test code = 354) CREATININE (BEAKER) 1.06 mg/dL 0.57-1.25 (test code = 358) GLUCOSE RANDOM 128 mg/dL 70-105 H (BEAKER) (test code = 652) CALCIUM (BEAKER) 9.2 mg/dL 8.4-10.2 (test code = 697) EGFR (BEAKER) (test 68 mL/min/1.73 ESTIMA ELODIA GFR IS code = 1092) sq m NOT ACCURATE CREATININE CLEARANCE IN PREDICTING GLOMERULAR FILTRATION RATE . ESTIMATED GFR I S NOT APPLICABLE FOR DIALYSIS PATIEN TS. CBC W/PLT COUNT & AUTO [id number] 10:44:00 Test Item Value Reference Range Interpretation [...] L 0.00-0.20 (test code = 417) 0.00PROTHROMBIN [id number] 10:28:00 Test Item Value Reference Range Interpretation [...]
[2022-05-10] MEDS ORDERED: ALBUTEROL 2.5 MG/3 ML NEB SOL IH PRN (14:51)
[2022-05-10] MEDS ORDERED: HYDROMORPHONE HCL 1 MG/ML INJ IV PRN (14:52)
[2022-05-10] MEDS ORDERED: PNEUMOCOCCAL VACCINE 0.5 ML IMVAC ONE (15:00)
[2022-05-10] MEDS ORDERED: ACETAMINOPHEN 325 MG TABLET PO PRN (15:00)
[2022-05-10] MEDS ORDERED: ONDANSETRON 4 MG/2 ML VIAL IV PRN (15:00)
[2022-05-10] MEDS ORDERED: DIPHENHYDRAMINE 25 MG TAB/CAP PO PRN (15:00)
[2022-05-10] MEDS ORDERED: LOPERAMIDE HCL 2 MG CAPSULE PO PRN (15:00)
[2022-05-10] MEDS ORDERED: ONDANSETRON 4 MG (ODT) TAB PO PRN (15:00)
[2022-05-10] MEDS ORDERED: POLYETHYL GLY 3350 17 GM/DOSE PO PRN (15:00)
[2022-05-10] MEDS ORDERED: INFLUENZA VACCINE (for 6+ mo) 0.5 ML DOSE IMVAC ONE (15:00)
--- NOTE | 2022-05-10 15:08 | RAD REPORT ---
EXAM DESCRIPTION: RAD - Chest Pa And Lat (2 Views) - 05/10/2022 2:59 pm CLINICAL HISTORY: admission, shortness of breath COMPARISON: Two view chest 03/14/2022 TECHNIQUE: Frontal and lateral views of the chest were obtained. FINDINGS: The lungs are clear of a focal mass or consolidation. Interstitial markings are mildly pro minent but not clearly different. Enlarged pulmonary arteries are unchanged from prior imaging. Hea rt size is normal and central vasculature is within normal limits. No pleural effusion or pneumothor ax seen. No acute bony finding noted. No aortic abnormality. IMPRESSION: No acute cardiopulmonary process. No significant change from comparison study.
[2022-05-10 15:20] VITALS: BMI 32.3
[2022-05-10] MEDS ORDERED: GLUCAGON 1 MG/VIAL IM PRN (16:03)
[2022-05-10] MEDS: NACHLORIDE 0.45% 1,000 ML IV SCH (16:07)
[2022-05-10] MEDS ORDERED: D10W 250 ML BAG IV PRN (16:08)
[2022-05-10 16:30] LABS: Absolute Lymphocytes (CBC) 0.7 K/uL (0.7-4.9); Lymphocytes % 13.8 % (15.3-44.8); MCV 84.5 fL (80-100); MPV 7.3 fL (7.6-11.3); RBC Red Blood Cell Count 6.03 M/uL (4.33-5.43)
[2022-05-10] MEDS: INSULIN -REGULAR HUMAN 50 UNIT/0.5 ML ML SQ SCH ×2 (16:30→21:00)
[2022-05-10] MEDS ORDERED: VANCOMYCIN 1.75 GM in NA CHLORIDE 0.9% 500 ML IVPB ONE (17:00)
[2022-05-10] MEDS: IPRATROPIUM BROM 0.5MG/2.5ML IH SCH ×2 (18:17→19:00)
[2022-05-10] MEDS: LEVALBUTEROL 1.25 MG/3 ML NEB IH SCH ×2 (18:17→19:01)
[2022-05-10 18:29] LABS: Albumin 3.6 g/dL (3.4-5.0); Bilirubin Direct 0.2 mg/dL (0-0.2); Bilirubin Total 0.7 mg/dL (0.2-1.0); Magnesium 2.2 mg/dL (1.6-2.4); Phosphorus 3.9 mg/dL (2.5-4.9); Potassium 3.5 mmol/L (3.5-5.1); Protein, Total 6.8 g/dL (6.4-8.2); Thyroid Stimulating Hormone 3.17 uIU/mL (0.358-3.740)
[2022-05-10 20:29] LABS: Urine Mucus Slight /HPF (None Seen); Urine RBC <5 /HPF (None Seen)
[2022-05-11] MEDS: IPRATROPIUM BROM 0.5MG/2.5ML IH SCH ×4 (01:53→19:40)
[2022-05-11] MEDS: LEVALBUTEROL 1.25 MG/3 ML NEB IH SCH ×4 (01:54→19:40)
[2022-05-11 05:01] LABS: Absolute Lymphocytes (CBC) 0.6 K/uL (0.7-4.9); Hematocrit 44.1 % (39.6-49.0); MPV 7.1 fL (7.6-11.3); RBC Red Blood Cell Count 5.31 M/uL (4.33-5.43)
[2022-05-11 05:04] LABS: Magnesium 2.3 mg/dL (1.6-2.4); Potassium 3.6 mmol/L (3.5-5.1)
[2022-05-11] MEDS: INSULIN -REGULAR HUMAN 50 UNIT/0.5 ML ML SQ SCH ×4 (07:30→20:57)
[2022-05-11] MEDS ORDERED: NA CHLORIDE 0.9% 1,000 ML ONE (07:37)
--- NOTE | 2022-05-11 07:45 | P.CNS ---
Date of Consult: 05/11/22 Reason for consult: Infection right leg History of present illness: Patient is a 77-year-old gentleman presented to the hospital yesterday from Dr. Bullock's office with infection in his right lateral leg that started on last Friday. Patient went to the ER and was started on antibiotics. He followed up with Dr. Edwards earlier in the week and the antibiotics were changed. He saw Dr. Bullock yesterday and the infection turned into an abscess. Patient had surrounding cellulitis. Patient was admitted for IV antibiotics and I was consulted. Patient is currently undergoing radiation treatment for prostate cancer. Patient denies sore throat, runny nose, cough, headaches, dizziness, chest pain, fever or chills. Patient denies any discharge. Review of systems: Otherwise unremarkable Past medical history: Diabetes and prostate cancer Past surgical history: Cyst removal from skin Allergies: None Social history: Patient does not smoke or drink alcohol Family history: Noncontributory Vital signs: Stable, afebrile Physical exam: Awake alert oriented x3 Head and neck exam: No masses Chest: Clear Heart: S1-S2 Abdomen: Soft Extremity: Neurovascular intact. The right lateral leg has approximately a 8 x 6 cm area of erythema warmth edema and central fluctuance. Neuro: Nonfocal Diagnostic data: Laboratory data reviewed. White count is normal but patient has a left shift. Assessment: Right leg abscess and cellulitis that is failed outpatient therapy. Plan/recommendation: Admit, n.p.o., IV fluids, IV antibiotics and to the OR for incision drainage and debridement of her right lateral leg abscess. Patient understands risk benefits and alternatives and agrees to procedure. Patient can be discharged home later today on oral antibiotics and home health for dressing changes. Plan of care discussed in detail with the patient. CC: Dr. Bullock's office
[2022-05-11] MEDS ORDERED: CEFAZOLIN SODIUM 1 GM/VIAL ONE (07:53)
[2022-05-11] MEDS ORDERED: FENTANYL CITR 100 MCG/2 ML ONE (07:56)
[2022-05-11] MEDS ORDERED: LIDOCAINE 2% MPF 5 ML VIAL ONE (07:56)
[2022-05-11] MEDS ORDERED: propofoL 200 MG/20 ML VIAL IV ONE (07:56)
[2022-05-11] MEDS ORDERED: Phenylephrine HCl 10 MG/ML 1 ML VIAL ONE (08:12)
[2022-05-11] MEDS ORDERED: dexAMETHasone 10 MG/ML VIAL ONE (08:14)
[2022-05-11] MEDS ORDERED: KETOROLAC 30 MG/ML INJ ONE (08:14)
[2022-05-11] MEDS ORDERED: ONDANSETRON 4 MG/2 ML VIAL ONE (08:15)
--- NOTE | 2022-05-11 08:33 | P.OP ---
Date of Service: 05/11/22 Preop diagnosis: Abscess and cellulitis right lateral leg Postop diagnosis: Same Procedure performed: Incision, drainage and debridement of right leg abscess Surgeon: Kenan Harp MD Zookeeper: None Estimated blood loss: Minimal Specimen: Pus and necrotic tissue Findings: As above Anesthesia: General Complications: None Drains: None Fluids and blood products: Nonapplicable Disposition: Recovery room Operative note: Patient brought to the OR and placed in supine position. General anesthesia begun. Patient prepped and draped in usual sterile fashion. Marcaine 0.5% infiltrated locally for postop pain control. Then 15 blade used to excise early necrotic skin is approximately a 5 x 1 cm incision down through the deep subcutaneous tissue. Pus evacuated. Cultures done. Curette used to debride the wound further. Cautery used to control bleeding. Wound irrigated and bleeding controlled cautery. Wet-to-dry normal saline dressing change applied. Patient taught the procedure in stable condition taken to recovery room in good general condition. CC: Dr. Bullock's office
[2022-05-11] MEDS ORDERED: CHLORHEXIDINE GLUCO 4% 120 ML TOP SCH (09:00)
[2022-05-11] MEDS: MUPIROCIN 2% OINT 22GM TUBE TOP SCH ×2 (09:00→21:00)
[2022-05-11] MEDS ORDERED: KCL 20 MEQ/100 mL IVPB 20 MEQ/100 ML BAG IV SCH (10:00)
[2022-05-11] MEDS ORDERED: POTASSIUM CL SA 10 MEQ TAB PO ONE ×2 (10:21→10:56)
[2022-05-11] MEDS ORDERED: VANCOMYCIN 1.75 GM in NA CHLORIDE 0.9% 500 ML IVPB SCH (17:00)
--- NOTE | 2022-05-11 19:06 | P.PN ---
Subjective Date of Service: 05/11/22 Chief Complaint: R LEG ABSCESS Subjective: Improving DON HAD R LEG INFECTION THAT FAILE DTO IMPROVE ON BACTRIM DS. HE HAD SEVERE PAIN, INDURATION AND ABSCESS R LEG. AFTER SURGERY ONLY SMALL AMT OF PUS CAME OUT BUT THERE IS NECROSIS IN THE R LEG LATERALLY. DR. SIMON ASKED TO KEEP HIM ONE MORE DAY BEC OF SEVERITY OF INFECTION. Physical Examination - Vital Signs Temperature: 97.6 F Blood Pressure: 130/70 Pulse: 67 Respirations: 18 Pulse Ox (%): 96 - Physical Exam General: Oriented x3, Mild distress HEENT: Atraumatic, PERRLA, EOMI Neck: Supple, JVD not distended Respiratory: Clear to auscultation bilaterally, Normal air movement Cardiovascular: Regular rate/rhythm, Normal S1 S2 Gastrointestinal: Normal bowel sounds, No tenderness Musculoskeletal: No tenderness Integumentary: No rashes Neurological: Normal speech, Normal tone, Normal affect Lymphatics: No axilla or inguinal lymphadenopathy - Studies Laboratory Data (last 24 hrs) 05/11/22 04:08: Sodium 136, Potassium 3.6, BUN 21 H, Creatinine 1.31 H, Glucose 102, Magnesium 2.3 05/11/22 04:08: WBC 4.10 L, Hgb 15.0 D, Hct 44.1, Plt Count 130 L Microbiology Data (last 24 hrs): 05/10/22 16:10 Blood - Blood Anaerobic Blood Culture - Final 05/10/22 16:00 Blood - Blood Blood Culture Gram Stain - Final 05/10/22 16:00 Blood - Blood Anaerobic Blood Culture - Final Medications List Reviewed: Yes Assessment And Plan - Current Problems (Diagnosis) (1) Cellulitis and abscess of right leg Current Visit: Yes Status: Acute Plan: IV VANCOMYCIN ORAL IN AM DC IN AM OKAY. (2) Hypercoagulable state Current Visit: Yes Status: Chronic Plan: HE IS ON LIFETIME ANTICOAGUALTION BEC OF UNPROVOKED PE.
[2022-05-11] MEDS ORDERED: ZOLPIDEM TARTRATE 10 MG TABLET PO SCH (21:00)
[2022-05-11] MEDS ORDERED: ATORVASTATIN 20 MG TAB PO SCH (21:00)
[2022-05-11] MEDS: APIXABAN 5 MG TABLET PO SCH (21:00)
[2022-05-12] MEDS: NACHLORIDE 0.45% 1,000 ML IV SCH (00:20)
[2022-05-12] MEDS: LEVALBUTEROL 1.25 MG/3 ML NEB IH SCH ×2 (01:15→08:35)
[2022-05-12] MEDS: IPRATROPIUM BROM 0.5MG/2.5ML IH SCH ×2 (01:15→08:35)
[2022-05-12 05:00] LABS: Absolute Lymphocytes (CBC) 0.3 K/uL (0.7-4.9); Hematocrit 42.3 % (39.6-49.0); Lymphocytes % 4.7 % (15.3-44.8); MCV 83.7 fL (80-100); RBC Red Blood Cell Count 5.06 M/uL (4.33-5.43)
[2022-05-12 05:15] LABS: Magnesium 2.3 mg/dL (1.6-2.4); Potassium 4.2 mmol/L (3.5-5.1)
[2022-05-12 05:51] VITALS: TEMP 97.9
--- NOTE | 2022-05-12 08:28 | P.PN ---
Date of Service: 05/12/22 Subjective: Patient with no complaints Objective: Vital signs stable, afebrile. Laboratory data reviewed. Woundless erythema, and no warmth and no purulence. Wound is clean. Assessment: Status post I&D and debridement of right leg abscess Plan: Patient can be discharged home on oral antibiotics. Patient to follow-up with me in the wound healing center. Home health has been arranged. Antibiotics per Dr. Bullock. CC:
[2022-05-12] MEDS ORDERED: GLIMEPIRIDE 2 MG TABLET PO SCH (09:00)
[2022-05-12] MEDS ORDERED: EMPAGLIFLOZIN PO SCH (09:00)
[2022-05-12] MEDS ORDERED: METFORMIN PO SCH (09:00)
[2022-05-12] MEDS: APIXABAN 5 MG TABLET PO SCH (09:00)
[2022-05-12] MEDS ORDERED: THYROID PORK 180 MG PO SCH (09:00)
[2022-05-12] MEDS ORDERED: NEBIVOLOL HCL 5 MG TAB PO SCH (09:00)
[2022-05-12] MEDS: MUPIROCIN 2% OINT 22GM TUBE TOP SCH (09:00)
[2022-05-12] MEDS ORDERED: LOSARTAN/HCTZ 50-12.5 PO SCH (09:00)
[2022-05-12] MEDS: INSULIN -REGULAR HUMAN 50 UNIT/0.5 ML ML SQ SCH (09:28)
[2022-05-12 10:08] VITALS: O2SAT 95
--- NOTE | 2022-05-12 10:30 | P.DS ---
Admission Date: 05/10/22 Discharge Date: 05/12/22 Disposition: ROUTINE DISCHARGE Discharge Condition: GOOD Reason for Admission: R LEG ABSCESS - Problems (1) Cellulitis and abscess of right leg Current Visit: Yes Status: Acute (2) Hypercoagulable state Current Visit: Yes Status: Chronic Hospital Course: DON IS STABLE. HE HAS NO PAIN. I CHANGED ABX FROM SULFA TO ZYVOX FOR HOME CREATININE IS HIGHER. HE WILL DRINK MORE WATER AT HOME. WILL FU. HE WILL SEE DR. HARP IN [facility] Vital Signs/Physical Exam: Temp Pulse Resp BP Pulse Ox 97.9 F 68 17 102/54 L 90 L 05/12/22 04:00 05/12/22 04:00 05/12/22 04:00 05/12/22 04:00 05/12/22 04:00 Laboratory Data at Discharge: WBC 6.30 K/uL (4.3-10.9) 05/12/22 04:45 Hgb 14.1 g/dL (13.6-17.9) 05/12/22 04:45 Hct 42.3 % (39.6-49.0) 05/12/22 04:45 Plt Count 128 K/uL (152-406) L 05/12/22 04:45 APTT 35.5 SECONDS (24.3-36.9) 05/10/22 16:00 Sodium 135 mmol/L (136-145) L 05/12/22 04:45 Potassium 4.2 mmol/L (3.5-5.1) D 05/12/22 04:45 BUN 31 mg/dL (7-18) H 05/12/22 04:45 Creatinine 1.78 mg/dL (0.70-1.30) H 05/12/22 04:45 Glucose 252 mg/dL (74-106) H 05/12/22 04:45 Phosphorus 3.9 mg/dL (2.5-4.9) 05/10/22 16:00 Magnesium 2.3 mg/dL (1.6-2.4) 05/12/22 04:45 Total Bilirubin 0.7 mg/dL (0.2-1.0) 05/10/22 16:00 AST 19 U/L (15-37) 05/10/22 16:00 ALT 20 U/L (16-61) 05/10/22 16:00 Alkaline Phosphatase 60 U/L (45-117) 05/10/22 16:00 Home Medications: Losartan/Hydrochlorothiazide [Hyzaar 50-12.5 Tablet] 1 tab PO DAILY 12/01/15 Nebivolol HCl [Bystolic*] 5 mg PO DAILY 12/01/15 Simvastatin 40 mg PO BEDTIME 12/01/15 Thyroid,Pork [[place] Thyroid] 150 mg PO DAILY 12/01/15 Zolpidem Tartrate [Ambien*] 10 mg PO BEDTIME 12/01/15 Apixaban [Eliquis *] 5 mg PO BID #74 tablet 12/02/15 Empagliflozin/Metformin HCl [Synjardy Xr 25-1,000 mg Tablet] 1 tab PO DAILY 03/14/22 Glimepiride 1 tab PO DAILY 03/14/22 Linezolid [Zyvox] 600 mg PO BID #20 tab 05/12/22 New Medications: Linezolid [Zyvox] 600 mg PO BID #20 tab Physician Discharge Instructions: Wet-to-dry normal saline dressing changes daily Patient has home health Antibiotics per Dr. Bullock Follow-up wound healing center next Diet: ADA Activity: No lifting more than 10 lbs Followup: Kenan Harp MD [ACTIVE - CAN ADMIT] - 05/16/22 (Follow-up wound healing center in my clinic on morning)
[2022-05-12 10:49] VITALS: BP 137/64
== END 2022-05-12 11:35 | disposition home or self-care (01) ==
LOC: 4TH 13:57
PROVIDERS: ADMIT Internal Medicine; ATTEND Internal Medicine
PROC: 0J9N0ZZ Drainage of Right Lower Leg Subcutaneous Tissue and Fascia, Open Approach (ICD-10-PCS; principal; 2022-05-11 08:00)
DX: L02.415 Cutaneous abscess of right lower limb (principal); L03.115 Cellulitis of right lower limb; I96 Gangrene, not elsewhere classified; E11.9 Type 2 diabetes mellitus without complications; Z85.46 Personal history of malignant neoplasm of prostate
CPT/HCPCS: 87040 ×2; 87070; 85025 ×3; 80048 ×3; 36415 ×2; 83735 ×3; 87205 ×2; 84100; 82947 ×7; 80076; 85730; 82652; 87075; 84443; 81015; 82607; 71046; 94640; 87811; 10060; J2704; J2370; J7614 ×5; J1815 ×3; J7644 ×5; J2001; J3010; J3370 ×2; J1100; J7040 ×2; J7030; J2405; J0690; 87077; 87186; 88304; G0378; G0379